=== PATIENT | female | born 1990 | race Caucasian/White ===

== ENCOUNTER → 2018-04-29 | Outpatient (CLI) | payer OTHER ==
[~2018-04-29] MED LIST: AMOXICILLIN875 MG; CLINDAMYCIN HC300 MG PO; ENDOCET 5-3251 EACH PO; MOTRIN800 MG PO; PERCOCET 5/31 TABLET PO; VENLAFAXINE HC150 M1 PO; bcp
== END | disposition home or self-care (01) ==
LOC: NUC 06:56
DX: K82.8 Other specified diseases of gallbladder (principal)
CPT/HCPCS: 78227; A9537